=== PATIENT | female | born 1940 | race Caucasian/White ===

== ENCOUNTER 2022-02-26 10:12 | Inpatient (IN) ==
[2022-02-26] MEDS ORDERED: IOPAMIDOL 100 ML BOTTLE IV ONE (10:13)
--- NOTE | 2022-02-26 10:27 | Emergency Department Note ---
HPI General Chief complaint: Abdominal Pain Stated complaint: Diverticulitus Time Seen by Provider: 02/26/22 10:26 Source: patient Mode of arrival: ambulatory Limitations: no limitations History of Present Illness HPI Narrative: Narrative: Patient is an 81-year-old female with a complex medical history presents to the emergency department due to abdominal pain, nausea, and vomiting. Patient states that she has had a few days of abdominal pain. She states that she was diagnosed with diverticulitis by her primary care physician. She states that she was given antibiotics. She has been taking her Bactrim and Flagyl since they were prescribed approximately 2-1/2 days ago. She states that she then began to have worsening abdominal pain that is now in the upper part of the abdomen. She also states that she is having nausea and vomiting which she is unable to control with the medication given to her for nausea. She endorses chills. She also states that she has had some difficulty with urination. She denies any other concerns at this time. Related Data Previous Rx's Medication Instructions Recorded Asmanex HFA 100 mcg/actuation 2 puff inhalation BID #13 grams 05/26/21 aerosol inhaler (mometasone) amlodipine 10 mg tablet 10 mg PO QDAY blood pressure #90 11/16/21 tabs amitriptyline 25 mg tablet 25 mg PO QDAY #90 tabs 01/08/22 trazodone 50 mg tablet 50 mg PO .COMPLEX PRN insomnia #90 02/02/22 tabs albuterol sulfate 2.5 mg/3 mL 2.5 mg (3 mL) inhalation Q4H PRN 02/03/22 (0.083 %) solution for nebulization Wheezing #180 mL albuterol sulfate 90 mcg/actuation 2 puff inhalation Q6H PRN 02/04/22 aerosol inhaler shortness of breath or wheezing #8.5 grams metoprolol succinate 25 mg See Rx Instructions .Route 02/10/22 tablet,extended release 24 hr .COMPLEX #90 tabs Allergies Allergy/AdvReac Type Severity Reaction Status Date / Time glucosamine Allergy Mild Hives Verified 02/27/22 07:42 shellfish derived Allergy Mild Hives Verified 02/27/22 07:42 hydrocodone AdvReac Mild Nausea, Verified 02/27/22 07:42 vomiting oxycodone [Oxycodone] AdvReac Mild vomiting Verified 02/27/22 07:42 promethazine [From Phenergan] AdvReac Mild Cramping Verified 02/27/22 07:42 of the Muscles hazelnut AdvReac Mild Nausea, Uncoded 02/27/22 07:42 vomiting sulfates AdvReac Mild Headache Uncoded 02/27/22 07:42 Review of Systems ROS ROS Narrative: Narrative: Constitutional: Reports chills; Denies fever or weakness Eyes: Denies eye pain or vision change ENT ED: Denies throat pain, hearing loss or rhinorrhea Cardiovascular: Denies chest pain, dyspnea on exertion, orthopnea or edema Respiratory: Denies shortness of breath or cough Gastrointestinal: Reports abdominal pain, nausea, vomiting and diarrhea; Denies constipation, hematochezia or melena Musculoskeletal: Denies back pain or myalgia Integumentary: Denies rash or lesions Neurological: Denies headache, weakness, numbness, confusion, abnormal gait or dizziness Psychiatric: Denies anxiety, suicidal thoughts or homicidal thoughts Endocrine: Denies fatigue or polyuria PFSH Narrative Patient History Narrative: Narrative: Medical/Surgical/Family History All Active Problems (Updated 02/26/22 @ 13:37 by Guillermo Tomlinson MD) Paroxysmal atrial fibrillation (Acute) Acute pancreatitis without infection or necrosis (Acute) Sigmoid diverticulitis (Acute) Diverticulitis (Acute) Abdominal pain (Acute) OAB (overactive bladder) (Acute) Low back pain (Acute) Spinal stenosis, lumbar region with neurogenic claudication (Acute) URI (upper respiratory infection) (Acute) Lumbar stenosis with neurogenic claudication (Acute) Difficulty in walking (Chronic) Claustrophobia (Chronic) Other low back pain (Chronic) Peripheral neuropathy (Chronic) Asthma with exacerbation (Chronic) Arthritis of foot (Chronic) Dark stools (Chronic) Abdominal cramping (Chronic) Left knee pain (Chronic) Back pain (Chronic) GERD with apnea (Chronic) Nocturnal hypoxemia (Chronic) Murmur, cardiac (Chronic) COPD with emphysema (Chronic) Fecal incontinence (Chronic) Medicare annual wellness visit, initial (Chronic) Celiac artery stenosis (Chronic) Ascending aortic aneurysm (Chronic) Muscle spasm (Chronic) Leg cramps (Chronic) Chronic cough (Chronic) Edema (Chronic) Angioedema (Chronic) Shortness of breath (Chronic) Diabetes mellitus (Chronic) Chronic kidney disease, stage 3 (Chronic) Seborrheic keratosis (Chronic) History of tobacco use (Chronic) Migraines (Chronic) Joint pain (Chronic) Insomnia (Chronic) Hyperlipidemia (Chronic) Hypertension, essential (Chronic) Asthma (Chronic) Medical History (Updated 02/26/22 @ 13:37 by Guillermo Tomlinson MD) Abdominal cramping Abdominal pain Angioedema Arthritis Arthritis of foot Ascending aortic aneurysm Asthma Asthma with exacerbation Back pain Bronchitis Celiac artery stenosis 80% 0n CT 02/2020 Chronic cough Chronic kidney disease, stage 3 Chronic pain Claustrophobia COPD with emphysema Cough Dark stools Daytime sleepiness Diabetes mellitus Dx about 2011 Difficulty in walking Edema Encounter for Health Maintenance Examination in Adult Fatigue Fecal incontinence GERD with apnea History of tobacco use Hyperlipidemia Hypertension, essential Dx about 2005 Insomnia Joint pain Left knee pain Leg cramps Localized swelling, mass and lump, neck Loose stools Low back pain Low back pain Lumbar stenosis with neurogenic claudication Lump in neck (01/24/16) [place] 03/2016 no pathology noted Medicare annual wellness visit, initial Migraines Murmur, cardiac Muscle spasm Nocturnal hypoxemia OAB (overactive bladder) Other low back pain Peripheral neuropathy Postmenopausal Seborrheic keratosis Shortness of breath SI (sacroiliac) joint inflammation Stomach pain URI (upper respiratory infection) Urinary hesitancy Surgical History H/O colonoscopy (11/13/14) Spring 2014 [address] [place], repeat 2019 H/O foot surgery 1979; bilateral H/O tubal ligation 1970 H/O: hysterectomy 1977 History of appendectomy History of tonsillectomy Family History Father Arthritis Diabetes Heart disease Mother Arthritis Diabetes Hypertension, essential Stroke Thyroid disease Brother Diabetes Hypertension, essential Daughter Migraines Seizures Social History Smoking Status: Former smoker Alcohol Intake Frequency: does not drink Substance Use: does not use Exam Narrative Narrative: Narrative: General Limitations: no limitations General appearance: Present alert and in no apparent distress; Absent anxious or appears intoxicated Head Head: Present atraumatic and normocephalic Eye Eye: Present PERRL and EOMI; Absent scleral icterus or nystagmus ENT ENT: Present mucous membranes moist; Absent nasal congestion Neck Neck: Present full ROM; Absent tenderness Chest Chest: Present normal inspection and symmetric chest wall rise; Absent tenderness Respiratory Respiratory: Present normal lung sounds bilaterally; Absent respiratory distress or accessory muscle use Cardiovascular Cardiovascular: Present regular rate, normal rhythm and normal heart sounds Adbominal Abdominal: Present soft, tenderness (LLQ) and normal bowel sounds; Absent distention Extremities Extremities: Present normal inspection and full ROM; Absent tenderness Back Back: Present normal inspection and full ROM; Absent tenderness Neurological Neurological: Present alert and oriented X3 Psychiatric Psychiatric: Present normal affect and normal mood Skin Skin: Present warm (WNL), dry and normal color Course Vital Signs Vital signs: Vital Signs Temperature 98.1 F 02/26/22 10:15 Pulse Rate 115 H 02/26/22 10:15 Respiratory Rate 18 02/26/22 10:15 Blood Pressure 148/98 02/26/22 10:15 Pulse Oximetry (%) 96 02/26/22 10:15 Oxygen Delivery Method 02/26/22 10:15 Temperature 98.5 F 02/27/22 07:19 Pulse Rate 84 02/27/22 07:19 Respiratory Rate 18 02/27/22 07:58 Blood Pressure 131/73 02/27/22 07:19 Pulse Oximetry (%) 90 02/27/22 07:58 Oxygen Delivery Method 02/27/22 07:58 Oxygen Flow Rate (L/min) 3 02/27/22 06:10 [facility] Narrative Medical decision making narrative: Narrative: Patient is an 81-year-old female with a complex medical history presents to the emergency department due to abdominal pain, nausea, and vomiting. Differential includes diverticulitis worsening with perforation or abscess, colitis, UTI, and side effect of antibiotics. Patient's CT does demonstrate diverticulitis. Labs demonstrate elevated lipase. Due to her symptoms with pancreatitis I have spoken to Dr. Tomlinson and he has agreed to see and evaluate patient for admission. Lab Data Result diagrams: 02/27/22 05:37 02/27/22 05:37 Labs: Lab Results 02/26/22 02/26/22 02/26/22 Range/Units 10:40 10:40 10:45 WBC 10.5 (4.5-11.0) K/mcL RBC 4.47 (3.59-5.38) M/mcL Hgb 13.3 (11.2-15.7) g/dL Hct 38.4 (34.1-44.9) % POC Hct (36-48) MCV 85.9 (80.0-100.0) fL MCH 29.8 (26.0-34.0) pg MCHC 34.6 (31.0-36.0) g/dL RDW 13.2 (11.5-14.5) % Plt Count 249 (140-440) K/mcL MPV 10.6 H (7.4-10.4) fL Immature Gran % (Auto) 0.3 (0.0-0.5) % Neut % (Auto) 83.2 H (38.0-78.0) % Lymph % (Auto) 7.9 L (15.5-49.0) % Moffat % (Auto) 8.2 (1.0-12.0) % Eos % (Auto) 0.1 (0.0-7.0) % Baso % (Auto) 0.3 (0.0-2.0) % Lymph # (Auto) 0.83 L (1.50-4.80) K/mcL Moffat # (Auto) 0.86 (0.10-0.90) K/mcL Eos # (Auto) 0.01 (0.00-0.70) K/mcL Baso # (Auto) 0.03 (0.00-0.30) K/mcL Immature Gran # 0.03 (0.00-0.05) K/mcl Absolute Neutrophils 8.78 H (1.80-8.00) K/mcL VBG Lactic Acid (0.5-2.0) mmol/L POC Sodium (133-145) POC Potassium (3.3-5.1) POC Chloride (96-108) POC Total CO2 (22-30) POC BUN (6-20) POC Creatinine (0.6-1.2) POC Glucose (70-105) POC WB Ioniz Calcium (1.16-1.32) Total Bilirubin 0.5 (0.1-1.0) mg/dL Direct Bilirubin < 0.2 (0-0.3) mg/dL AST 23 (<32) U/L ALT 12 (<40) U/L Alkaline Phosphatase 86 (39-117) U/L Total Protein 8.0 (5.9-8.4) gm/dL Albumin 4.2 (3.2-5.2) gm/dL Globulin 3.8 H (2.2-3.7) gm/dL Lipase 869 H (7-60) U/L Urine Color Yellow Urine Appearance Slightly cloudy A (Clear) Urine pH 5.5 (5.0-9.0) Ur Specific [place] >= 1.030 (1.000-1.035) Urine Protein 30 mg/dl A (Negative) mg/dL Urine Glucose (UA) Negative (Negative) mg/dL Urine Ketones 40 mg/dl A (Negative) mg/dL Urine Occult Blood Negative (Negative) louise/mcL Urine Nitrate Negative (Negative) Urine Bilirubin Negative (Negative) mg/dL Urine Urobilinogen Normal mg/dL Ur Leukocyte Esterase Trace A (Negative) /uL Urine RBC 1 (0-3) /hpf Urine WBC 2 (0-4) /hpf Ur Squamous Epith Cells 7 H (0-4) /hpf Urine Bacteria Few A (0) /hpf Hyaline Casts 3 H (0-2) /lph Urine Mucus Mod A (None) /hpf Ur Culture Indicated? No 02/26/22 02/26/22 Range/Units 10:50 13:31 WBC (4.5-11.0) K/mcL RBC (3.59-5.38) M/mcL Hgb (11.2-15.7) g/dL Hct (34.1-44.9) % POC Hct 43.0 (36-48) MCV (80.0-100.0) fL MCH (26.0-34.0) pg MCHC (31.0-36.0) g/dL RDW (11.5-14.5) % Plt Count (140-440) K/mcL MPV (7.4-10.4) fL Immature Gran % (Auto) (0.0-0.5) % Neut % (Auto) (38.0-78.0) % Lymph % (Auto) (15.5-49.0) % Moffat % (Auto) (1.0-12.0) % Eos % (Auto) (0.0-7.0) % Baso % (Auto) (0.0-2.0) % Lymph # (Auto) (1.50-4.80) K/mcL Moffat # (Auto) (0.10-0.90) K/mcL Eos # (Auto) (0.00-0.70) K/mcL Baso # (Auto) (0.00-0.30) K/mcL Immature Gran # (0.00-0.05) K/mcl Absolute Neutrophils (1.80-8.00) K/mcL VBG Lactic Acid 0.9 (0.5-2.0) mmol/L POC Sodium 131 L (133-145) POC Potassium 4.0 (3.3-5.1) POC Chloride 96 (96-108) POC Total CO2 26.0 (22-30) POC BUN 21 H (6-20) POC Creatinine 1.0 (0.6-1.2) POC Glucose 158 H (70-105) POC WB Ioniz Calcium 1.15 L (1.16-1.32) Total Bilirubin (0.1-1.0) mg/dL Direct Bilirubin (0-0.3) mg/dL AST (<32) U/L ALT (<40) U/L Alkaline Phosphatase (39-117) U/L Total Protein (5.9-8.4) gm/dL Albumin (3.2-5.2) gm/dL Globulin (2.2-3.7) gm/dL Lipase (7-60) U/L Urine Color Urine Appearance (Clear) Urine pH (5.0-9.0) Ur Specific [place] (1.000-1.035) Urine Protein (Negative) mg/dL Urine Glucose (UA) (Negative) mg/dL Urine Ketones (Negative) mg/dL Urine Occult Blood (Negative) louise/mcL Urine Nitrate (Negative) Urine Bilirubin (Negative) mg/dL Urine Urobilinogen mg/dL Ur Leukocyte Esterase (Negative) /uL Urine RBC (0-3) /hpf Urine WBC (0-4) /hpf Ur Squamous Epith Cells (0-4) /hpf Urine Bacteria (0) /hpf Hyaline Casts (0-2) /lph Urine Mucus (None) /hpf Ur Culture Indicated? Discharge Plan Patient/Caregiver Discharge Instructions Pt seen by [facility]TER/PA only: No Clinical Impression: Diverticulitis Patient Disposition: Xfer As Inpt ([facility]) Condition: Fair Discharge Date/Time: 02/26/22 13:46 Discharge Location: [facility]
[2022-02-26 10:52] LABS: POC Calcium, Ionized 1.15 (1.16-1.32)
[2022-02-26] MEDS ORDERED: 0.9 % SODIUM CHLORIDE 500 ML IV ONE (10:58)
[2022-02-26 11:21] LABS: Basophils # (Auto) 0.03 K/mcL (0.00-0.30); Basophils % (Auto) 0.3 % (0.0-2.0); Eosinophils # (Auto) 0.01 K/mcL (0.00-0.70); Eosinophils % (Auto) 0.1 % (0.0-7.0); Hematocrit 38.4 % (34.1-44.9); Hemoglobin 13.3 g/dL (11.2-15.7); Lymphocytes # (Auto) 0.83 K/mcL (1.50-4.80); Lymphocytes % (Auto) 7.9 % (15.5-49.0); Mean Cell Volume 85.9 fL (80.0-100.0); Mean Corpuscular HGB Conc 34.6 g/dL (31.0-36.0); Mean Platelet Volume 10.6 fL (7.4-10.4); Monocytes # (Auto) 0.86 K/mcL (0.10-0.90); Monocytes % (Auto) 8.2 % (1.0-12.0); Neutrophils % (Auto) 83.2 % (38.0-78.0); Platelet Count 249 K/mcL (140-440); RBC 4.47 M/mcL (3.59-5.38); Red Cell Distribution Width 13.2 % (11.5-14.5); WBC 10.5 K/mcL (4.5-11.0)
[2022-02-26 11:37] LABS: Appearance,Urine Slightly Cloudy (Clear); Bacteria,Urine FEW /hpf (0); Bilirubin,Urine Negative (Negative); Color,Urine Yellow; Culture Indicated,Urine No; Glucose,Urine (UA) Negative (Negative); Ketones,Urine 40 mg/dL mg/dL (Negative); Leukocyte Esterase,Urine Trace /uL (Negative); Mucus,Urine MOD /hpf; Nitrate,Urine Negative (Negative); PH,Urine 5.5 (5.0-9.0); Specific Gravity,Urine >= 1.030 (1.000-1.035); Urine Blood Negative ery/mcL (Negative); Urine Hyaline Cast 3 /lph (0-2); Urine RBC 1 /hpf (0-3); Urine Squamous Epithelial Cell 7 /hpf (0-4); Urine WBC 2 /hpf (0-4); Urobilinogen,Urine Normal
[2022-02-26 11:45] LABS: ALT/SGPT 12 U/L (<40); AST/SGOT 23 U/L (<32); Albumin 4.2 gm/dL (3.2-5.2); Alkaline Phosphatase 86 U/L (39-117); Bilirubin,Direct < 0.2 mg/dL (0-0.3); Bilirubin,Total 0.5 mg/dL (0.1-1.0); Globulin 3.8 gm/dL (2.2-3.7)
--- NOTE | 2022-02-26 11:51 | Cat Scan Report ---
History: Left lower quadrant pain, tenderness, diverticulitis TECHNIQUE: Following injection of intravenous nonionic contrast the patient was scanned during the portal venous phase from above the diaphragm to the symphysis pubis. Sagittal and coronal reformats were created. The radiation exposure was limited using dose reduction technology. FINDINGS: There is mild parenchymal scarring adjacent to the pleural surface medially in the right lower lobe and medially in the right middle lobe and inferior segment lingula. This is a chronic stable finding. The liver is normal in size and homogeneous. There are multiple cysts and small hemangiomas in the spleen. Some of them have calcifications along the hand. The largest is located superiorly measures 2.6 x 2.7 cm. These are unchanged from prior CTs dating back through 2018. There are also stable adenomas in both adrenals. The larger is on the right side and measures 1.9 cm. The gallbladder is normal with no stones or thickening of the wall. The bile ducts are nondilated. There is no mass or inflammation the pancreas. The kidneys are normal in size shape and contour and there is no kidney stone or hydronephrosis. A well-circumscribed thin-walled cyst is present in the left adnexa. It measures 6.1 x 6.6 cm. This is unchanged from 03/27/20 and may be a simple cyst or a serous cystadenoma. There is no evidence of malignant degeneration. The uterus is absent. Right ovary is not seen. Patient has developed acute sigmoid diverticulitis deep in the pelvis. There is inflammation in the surrounding fat. No abscess has formed. There is no free air or free fluid. No bowel obstruction is present. Small intestine is normal. IMPRESSION: Acute diverticulitis in the sigmoid colon Stable large cyst arising from left ovary Stable cysts in the spleen Stable adrenal adenomas Dr. Webb was called with report Interpreted and Authenticated by: Jorge Rosa 02/26/22
[2022-02-26] MEDS ORDERED: METHOCARBAMOL 750 MG TABLET PO PRN (13:21)
[2022-02-26] MEDS ORDERED: ALBUTEROL SULFATE 2.5 MG/3 ML NEBULIZER INH PRN (13:21)
--- NOTE | 2022-02-26 13:43 | Internal Med History&Physical ---
HPI History of Present Illness Patient information: Note initiated : 02/26/22 at 1:29 pm Service Date, if different from initiated Date: [] Patient: Barbara Olsen a 81 y/o F admitted on for Diverticulitus. Chief Complaint: [nausea, abdominal pain] Chief complaint: nausea, abdominal pain History of present illness: Ms. Olsen is a 81 year old F history of essential hypertensions, mixed dyslipidemia, asthma, paroxysmal atrial fibrillation, presenting with 1 week history of abdominal pain and nausea. He does not have any prior history of diverticulitis or dermatitis. She was recently being diagnosed with sigmoid div erticulitis, and was being started on oral antibiotics with Bactrim and metronidazole. She first started taking those antibiotics on February 24, 2022. However, her symptoms of abdominal pain got worse after taking those medications. She does not take dose today. She is complaining of upset stomach with nausea without vomiting. She is complain of dry heaves. She is complaining of mild abdominal pain in all quadrants which she associated with nausea cannot otherwise qualified the nature of the pain. It is constant. She denies any fever or chills. Vital signs at ED presentations significant for mild tachycardia with heart rate in the low 100s, rest of the vital signs within normal limits. Labs significant for lack of leukocytosis with WBC 10.5. Lactic acid pending. Lipase 869. LFTs within normal limits. CT of the abdomen pelvis showing acute diverticulitis in the sigmoid colon. Stable large cyst arising from left ovary. Stable cyst in the spleen. Stable abdominal adenomas. Constitutional Constitutional: Absent chills, excessive sweating, fatigue, fever(s) or weakness EENT Eyes: Absent blurry vision, change in vision, loss of vision or other visual disturbances Ears: Absent decreased hearing or tinnitus Nose, mouth and throat: Absent abnormal hearing, dry mouth, headache(s), nasal congestion or sore throat Cardiovascular Cardiovascular: Absent chest pain, chest pain at rest, edema, irregular heart rhythm or palpatations Respiratory Respiratory: Absent cough, dyspnea or wheezing Gastrointestinal Gastrointestinal: Present abdominal pain, nausea and vomiting; Absent constipation or diarrhea Musculoskeletal Musculoskeletal: Absent back pain, deformity, limited range of motion, muscle cramps, muscle weakness or numbness Integumentary Integumentary: Absent lesions, rash or wounds Neurological Neurological: Absent focal weakness, headache(s) or numbness Psychiatric Psychiatric: Absent anxiety, depression or hallucinations PFSH PFSH All Active Problems (Updated 02/26/22 @ 13:37 by Guillermo Tomlinson MD) Paroxysmal atrial fibrillation (Acute) Acute pancreatitis without infection or necrosis (Acute) Sigmoid diverticulitis (Acute) Diverticulitis (Acute) Abdominal pain (Acute) OAB (overactive bladder) (Acute) Low back pain (Acute) Spinal stenosis, lumbar region with neurogenic claudication (Acute) URI (upper respiratory infection) (Acute) Lumbar stenosis with neurogenic claudication (Acute) Difficulty in walking (Chronic) Claustrophobia (Chronic) Other low back pain (Chronic) Peripheral neuropathy (Chronic) Asthma with exacerbation (Chronic) Arthritis of foot (Chronic) Dark stools (Chronic) Abdominal cramping (Chronic) Left knee pain (Chronic) Back pain (Chronic) GERD with apnea (Chronic) Nocturnal hypoxemia (Chronic) Murmur, cardiac (Chronic) COPD with emphysema (Chronic) Fecal incontinence (Chronic) Medicare annual wellness visit, initial (Chronic) Celiac artery stenosis (Chronic) Ascending aortic aneurysm (Chronic) Muscle spasm (Chronic) Leg cramps (Chronic) Chronic cough (Chronic) Edema (Chronic) Angioedema (Chronic) Shortness of breath (Chronic) Diabetes mellitus (Chronic) Chronic kidney disease, stage 3 (Chronic) Seborrheic keratosis (Chronic) History of tobacco use (Chronic) Migraines (Chronic) Joint pain (Chronic) Insomnia (Chronic) Hyperlipidemia (Chronic) Hypertension, essential (Chronic) Asthma (Chronic) Medical History (Updated 02/26/22 @ 13:37 by Guillermo Tomlinson MD) Abdominal cramping Abdominal pain Angioedema Arthritis Arthritis of foot Ascending aortic aneurysm Asthma Asthma with exacerbation Back pain Bronchitis Celiac artery stenosis 80% 0n CT 02/2020 Chronic cough Chronic kidney disease, stage 3 Chronic pain Claustrophobia COPD with emphysema Cough Dark stools Daytime sleepiness Diabetes mellitus Dx about 2011 Difficulty in walking Edema Encounter for Health Maintenance Examination in Adult Fatigue Fecal incontinence GERD with apnea History of tobacco use Hyperlipidemia Hypertension, essential Dx about 2005 Insomnia Joint pain Left knee pain Leg cramps Localized swelling, mass and lump, neck Loose stools Low back pain Low back pain Lumbar stenosis with neurogenic claudication Lump in neck (01/24/16) [place] 03/2016 no pathology noted Medicare annual wellness visit, initial Migraines Murmur, cardiac Muscle spasm Nocturnal hypoxemia OAB (overactive bladder) Other low back pain Peripheral neuropathy Postmenopausal Seborrheic keratosis Shortness of breath SI (sacroiliac) joint inflammation Stomach pain URI (upper respiratory infection) Urinary hesitancy Surgical History H/O colonoscopy (11/13/14) Spring 2014 [place] [place], repeat 2019 H/O foot surgery 1978; bilateral H/O tubal ligation 1970 H/O: hysterectomy 1977 History of appendectomy History of tonsillectomy Family History Father Arthritis Diabetes Heart disease Mother Arthritis Diabetes Hypertension, essential Stroke Thyroid disease Brother Diabetes Hypertension, essential Daughter Migraines Seizures Social History marital status: education level: college other: Children-3 smoking status: Former smoker quit date: 06/27/79 pack-years: 19 alcohol intake frequency: does not drink substance use type: does not use MEDS/ALLERGIES Home Medications and Allergies Home Medications Medication Instructions Recorded Confirmed Type cyanocobalamin (vitamin B-12) 1,000 mcg PO QDAY 03/09/16 02/24/22 History 1,000 mcg tablet (Vitamin B-12) cholecalciferol (vitamin D3) 25 5,000 unit PO QDAY 03/10/20 02/24/22 History mcg (1,000 unit) tablet Asmanex HFA 100 mcg/actuation 2 puff inhalation BID #13 grams 05/26/21 02/24/22 Rx aerosol inhaler (mometasone) amlodipine 10 mg tablet 10 mg PO QDAY blood pressure #90 11/16/21 02/24/22 Rx tabs methocarbamol 750 mg tablet 750 mg PO Q8H PRN muscle spasm #30 01/04/22 02/24/22 Rx tabs oxybutynin chloride 5 mg tablet 5 mg PO QDAY #30 tabs 01/04/22 02/24/22 Rx amitriptyline 25 mg tablet 25 mg PO QDAY #90 tabs 01/08/22 02/24/22 Rx trazodone 50 mg tablet 50 mg PO .COMPLEX PRN insomnia #90 02/02/22 02/24/22 Rx tabs albuterol sulfate 2.5 mg/3 mL 2.5 mg (3 mL) inhalation Q4H PRN 02/03/22 02/24/22 Rx (0.083 %) solution for nebulization Wheezing #180 mL albuterol sulfate 90 mcg/actuation 2 puff inhalation Q6H PRN 02/04/22 02/24/22 Rx aerosol inhaler shortness of breath or wheezing #8.5 grams metoprolol succinate 25 mg See Rx Instructions .Route 02/10/22 02/24/22 Rx tablet,extended release 24 hr .COMPLEX #90 tabs atorvastatin 10 mg tablet 10 mg PO QDAY cholesterol #90 tabs 02/15/22 02/24/22 Rx amoxicillin 875 mg-potassium 1 tab PO BID #20 tabs 02/26/22 Rx clavulanate 125 mg tablet Allergies Allergy/AdvReac Type Severity Reaction Status Date / Time hydrocodone Allergy Nausea, Verified 02/24/22 08:41 vomiting shellfish derived Allergy Hives Verified 02/24/22 08:41 oxycodone [Oxycodone] AdvReac Severe vomiting Verified 02/24/22 08:41 glucosamine AdvReac Intermediate Hives Verified 02/24/22 08:41 hazelnut Allergy Severe Nausea, Uncoded 02/24/22 08:41 vomiting dust Allergy Unknown Asthma Uncoded 02/24/22 08:41 dust mites Allergy Unknown Unknown Uncoded 02/24/22 08:41 sulfates AdvReac Intermediate Headache Uncoded 02/24/22 08:41 EXAM Constitutional Vitals: Temp Pulse Resp BP Pulse Ox O2 Del Method 36.7 C 103 H 18 142/88 93 02/26/22 10:15 02/26/22 13:14 02/26/22 11:34 02/26/22 12:52 02/26/22 13:14 02/26/22 11:34 General appearance: cooperative and no acute distress Head Head exam: Present atraumatic and normocephalic Eye Eye exam: Present EOMI and PERRL ENT ENT exam: Present mucous membranes moist, normal exam and normal external ear exam Neck Neck exam: Present normal inspection; Absent lymphadenopathy, tenderness or thyromegaly Respiratory Respiratory exam: Absent accessory muscle use, respiratory distress or wheezes Cardiovascular Cardiovascular exam: Present normal rate and rhythm; Absent JVD GI/Abdominal GI/Abdominal exam: Present normal bowel sounds, soft and tenderness; Absent organomegaly Extremities Exam Extremities exam: Present full ROM, normal capillary refill and normal inspection; Absent tenderness Neurological Exam Neurological exam: Present alert, CN II-XII intact and oriented X3; Absent motor sensory deficit Psychiatric Psychiatric exam: Present normal affect and normal mood; Absent anxious or depressed Skin Skin exam: Present dry and intact DATA Data Completed and Pending Labs: Labs from last 24 hours 02/26/22 02/26/22 02/26/22 10:50 10:45 10:40 WBC RBC Hgb Hct POC Hct 43.0 MCV MCH MCHC RDW Plt Count MPV Immature Gran % (Auto) Neut % (Auto) Lymph % (Auto) [place] % (Auto) Eos % (Auto) Baso % (Auto) Lymph # (Auto) [place] # (Auto) Eos # (Auto) Baso # (Auto) Immature Gran # Absolute Neutrophils POC Sodium 131 L POC Potassium 4.0 POC Chloride 96 POC Total CO2 26.0 POC BUN 21 H POC Creatinine 1.0 POC Glucose 158 H POC WB Ioniz Calcium 1.15 L Total Bilirubin 0.5 Direct Bilirubin < 0.2 AST 23 ALT 12 Alkaline Phosphatase 86 Total Protein 8.0 Albumin 4.2 Globulin 3.8 H Lipase 869 H Urine Color Yellow Urine Appearance Slightly cloudy A Urine pH 5.5 Ur Specific [place] >= 1.030 Urine Protein 30 mg/dl A Urine Glucose (UA) Negative Urine Ketones 40 mg/dl A Urine Occult Blood Negative Urine Nitrate Negative Urine Bilirubin Negative Urine Urobilinogen Normal Ur Leukocyte Esterase Trace A Urine RBC 1 Urine WBC 2 Ur Squamous Epith Cells 7 H Urine Bacteria Few A Hyaline Casts 3 H Urine Mucus Mod A Ur Culture Indicated? No 02/26/22 10:40 WBC 10.5 RBC 4.47 Hgb 13.3 Hct 38.4 POC Hct MCV 85.9 MCH 29.8 MCHC 34.6 RDW 13.2 Plt Count 249 MPV 10.6 H Immature Gran % (Auto) 0.3 Neut % (Auto) 83.2 H Lymph % (Auto) 7.9 L [place] % (Auto) 8.2 Eos % (Auto) 0.1 Baso % (Auto) 0.3 Lymph # (Auto) 0.83 L [place] # (Auto) 0.86 Eos # (Auto) 0.01 Baso # (Auto) 0.03 Immature Gran # 0.03 Absolute Neutrophils 8.78 H POC Sodium POC Potassium POC Chloride POC Total CO2 POC BUN POC Creatinine POC Glucose POC WB Ioniz Calcium Total Bilirubin Direct Bilirubin AST ALT Alkaline Phosphatase Total Protein Albumin Globulin Lipase Urine Color Urine Appearance Urine pH Ur Specific [place] Urine Protein Urine Glucose (UA) Urine Ketones Urine Occult Blood Urine Nitrate Urine Bilirubin Urine Urobilinogen Ur Leukocyte Esterase Urine RBC Urine WBC Ur Squamous Epith Cells Urine Bacteria Hyaline Casts Urine Mucus Ur Culture Indicated? A/P Assessment and plan (1) Asthma with exacerbation: Status: Chronic (2) Sigmoid diverticulitis: Status: Acute (3) Acute pancreatitis without infection or necrosis: Status: Acute (4) Hypertension, essential: Status: Chronic Comment: Dx about 2005 (5) Hyperlipidemia: Status: Chronic Qualifiers: Hyperlipidemia type: mixed hyperlipidemia Qualified Code(s): E78.2 - Mixed hyperlipidemia (6) Paroxysmal atrial fibrillation: Status: Acute Narrative A/P Narrative: Assessment and Plans: 1. Acute idiopathic pancreatitis: DDx: medication-induced pancreatitis, since patient stated that her abdominal pain and nausea are worse after taking Bactrim and metronidazole 2 days ago. Inpatient med surg Clear liquid diet NS@200cc/hr Zofran IV Tramadol Morphine IV 2. Sigmoid diverticulitis: d/c Bactrim DS and Flagyl, switch to Zosyn IV Zofran IV Tramadol Morphine IV Blood cultures Serial lactic acid cbc w/ auto diff in the morning to trend WBC 3. Essential HTN: Amlodipine Metoprolol Succinate 3. Paroxysmal atrial fibrillation: Metoprolol Succinate Patient not on anticoagulation therapy, decision is deferred to PCP 4. Hyperlipidemia: Continue statin therapy 5. Intermittent asthma: Continue bronchodilators as needed from home regimen GI ppx: not currently indicated DVT ppx: Lovenox Code status: Full Prognosis: guarded Disposition: inpatient med surg Time Spent With Patient Time: Total time spent is greater than 50% in coordination of care (as documented) at patient's floor/unit and/or counseling patient: Total time spent with greater than 50% in coordination of care (as documented) at patient's floor/unit and/or counseling patient:: 50 - 70 minutes
[2022-02-26] MEDS ORDERED: IPRATROPIUM/ALBUTEROL 3 ML AMPUL.NEB NEB PRN (14:15)
[2022-02-26] MEDS ORDERED: traZODone HCL 50 MG TABLET PO PRN (14:15)
[2022-02-26] MEDS ORDERED: morphine 4 MG/ML VIAL IV PRN (14:15)
[2022-02-26] MEDS ORDERED: traMADol 50 MG TABLET PO PRN (14:15)
[2022-02-26] MEDS: PIPERACILLIN SODIUM/TAZOBACTAM 3.375 GM in DEXTROSE 5% IN WATER 50 ML IV SCH ×3 (15:37→22:59)
[2022-02-26] MEDS: 0.9 % SODIUM CHLORIDE 1,000 ML IV SCH ×2 (15:37→22:59)
[2022-02-26] MEDS: 0.9 % SODIUM CHLORIDE 10 ML SYRINGE IV SCH ×2 (15:39→20:13)
[2022-02-26] MEDS ORDERED: ALBUTEROL SULFATE 200 PUFF INHALER INH PRN (15:48)
[2022-02-26] MEDS: MOMETASONE INH SCH (20:12)
[2022-02-26] MEDS: ONDANSETRON 4 MG/2 ML VIAL IV PRN (20:12)
[2022-02-26] MEDS: SENNOSIDES 1 TABLET PO SCH (20:29)
[2022-02-26] MEDS: DOCUSATE SODIUM 100 MG CAPSULE PO SCH (20:30)
[2022-02-26] MEDS ORDERED: PROMETHAZINE 25 MG/ML VIAL IV PRN (22:39)
[2022-02-26] MEDS ORDERED: PROMETHAZINE 25 MG/ML VIAL ONE (23:01)
[2022-02-26] MEDS ORDERED: diphenhydrAMINE 50 MG/ML VIAL IV PRN (23:52)
[2022-02-26] MEDS ORDERED: METOCLOPRAMIDE 10 MG/2 ML VIAL IV PRN (23:53)
[2022-02-27] MEDS ORDERED: diphenhydrAMINE 50 MG/ML VIAL ONE
[2022-02-27] MEDS: ACETAMINOPHEN 325 MG TABLET PO PRN ×2 (03:03→22:35)
[2022-02-27] MEDS: 0.9 % SODIUM CHLORIDE 1,000 ML IV SCH ×5 (04:20→22:40)
[2022-02-27] MEDS: PIPERACILLIN SODIUM/TAZOBACTAM 3.375 GM in DEXTROSE 5% IN WATER 50 ML IV SCH ×4 (05:47→23:28)
[2022-02-27] MEDS: 0.9 % SODIUM CHLORIDE 10 ML SYRINGE IV SCH ×3 (05:49→22:39)
[2022-02-27 06:44] LABS: Basophils # (Auto) 0.03 K/mcL (0.00-0.30); Basophils % (Auto) 0.4 % (0.0-2.0); Eosinophils # (Auto) 0.09 K/mcL (0.00-0.70); Eosinophils % (Auto) 1.3 % (0.0-7.0); Hematocrit 33.6 % (34.1-44.9); Hemoglobin 11.3 g/dL (11.2-15.7); Lymphocytes # (Auto) 0.95 K/mcL (1.50-4.80); Lymphocytes % (Auto) 13.7 % (15.5-49.0); Mean Cell Volume 87.3 fL (80.0-100.0); Mean Corpuscular HGB Conc 33.6 g/dL (31.0-36.0); Monocytes # (Auto) 0.85 K/mcL (0.10-0.90); Monocytes % (Auto) 12.2 % (1.0-12.0); Platelet Count 217 K/mcL (140-440); RBC 3.85 M/mcL (3.59-5.38); Red Cell Distribution Width 13.5 % (11.5-14.5)
[2022-02-27 07:00] LABS: ALT/SGPT 10 U/L (<40); AST/SGOT 18 U/L (<32); Albumin 3.4 gm/dL (3.2-5.2); Albumin/Globulin Ratio 1.1 (1.0-2.3); Alkaline Phosphatase 61 U/L (39-117); Bilirubin,Total 0.5 mg/dL (0.1-1.0); Blood Urea Nitrogen 12 mg/dL (8-23); Calcium 8.4 mg/dL (8.6-10.4); Carbon Dioxide 22 mmol/L (22-30); Chloride 106 mmol/L (96-108); Glomerular Filtration Rate 60; Glucose 101 mg/dL (70-105); Phosphorous 2.4 mg/dL (2.5-4.5)
[2022-02-27] MEDS: MOMETASONE INH SCH ×2 (08:35→19:22)
[2022-02-27] MEDS: ATORVASTATIN 10 MG TABLET PO SCH (08:36)
[2022-02-27] MEDS: AMITRIPTYLINE 25 MG TABLET PO SCH (08:36)
[2022-02-27] MEDS: amLODIPine 10 MG TABLET PO SCH (08:36)
[2022-02-27] MEDS: CYANOCOBALAMIN (VITAMIN B-12) 500 MCG TABLET PO SCH (08:36)
[2022-02-27] MEDS: METOPROLOL SUCCINATE 25 MG TAB.XL.24H PO SCH (08:37)
[2022-02-27] MEDS: VITAMIN D3 25 MCG TABLET PO SCH (08:37)
[2022-02-27] MEDS: OXYBUTYNIN CHLORIDE 5 MG TABLET PO SCH (08:37)
[2022-02-27] MEDS: ENOXAPARIN 40 MG/0.4 ML SYRINGE SQ SCH (08:38)
[2022-02-27] MEDS: DOCUSATE SODIUM 100 MG CAPSULE PO SCH ×2 (08:40→22:39)
--- NOTE | 2022-02-27 10:45 | Internal Med Progress Note ---
SUBJECTIVE Subjective Patient information: Note initiated : 02/27/22 at 10:41 am Service Date, if different from initiated Date: [] Patient: Barbara Olsen 81 y/o F admitted on 02/26/22 for Diverticulitus. Chief Complaint: [] Interval history: Ms. Olesn is a 81 year old F history of essential hypertensions, mixed dyslipidemia, asthma, paroxysmal atrial fibrillation, presenting with 1 week history of abdominal pain and nausea. He does not have any prior history of diverticulitis or dermatitis. She was recently being diagnosed with sigmoid diverticulitis, and was being started on oral antibiotics with Bactrim and metronidazole. She first started taking those antibiotics on February 24, 2022. However, her symptoms of abdominal pain got worse after taking those medications. She does not take dose today. She is complaining of upset stomach with nausea without vomiting. She is complain of dry heaves. She is complaining of mild abdominal pain in all quadrants which she associated with nausea cannot otherwise qualified the nature of the pain. It is constant. She denies any fever or chills. Vital signs at ED presentations significant for mild tachycardia with heart rate in the low 100s, rest of the vital signs within normal limits. Labs significant for lack of leukocytosis with WBC 10.5. Lactic acid pending. Lipase 869. LFTs within normal limits. CT of the abdomen pelvis showing acute diverticulitis in the sigmoid colon. Stable large cyst arising from left ovary. Stable cyst in the spleen. Stable abdominal adenomas. 02/27: Low-grade fever T-max 37.3 overnight. Blood culture no growth to date. WBC 7.0. Patient denies any abdominal pain currently. She denies any fever or chills. She tolerated clear liquid diet well. Advance diet to full liquid diet. Continue IV fluid and IV antibiotics with Zosyn while monitoring blood culture results. Constitutional Vitals: Vital Signs Temp Pulse Resp BP Pulse Ox O2 Del Method O2 Flow Rate 36.9 C 84 18 131/73 90 3 02/27/22 07:19 02/27/22 07:19 02/27/22 07:58 02/27/22 07:19 02/27/22 07:58 02/27/22 07:58 02/27/22 06:10 Period Temp Pulse Resp BP Sys/Phillips Pulse Ox O2 Del Method O2 Flow Rate Last 24 Hr 36.8 C-37.6 C 75-112 18-22 120-176/58-90 90-99 Nasal Cannula- Room Air 3-3 Intake and Output 02/26/22 02/27/22 02/27/22 21:59 05:59 13:59 Intake Total 1100 1850 1050 Output Total 475 550 775 Balance 625 1300 275 Weight 91.989 kg Intake & Output: Intake & Output 02/26/22 02/27/22 02/27/22 21:59 05:59 13:59 Intake Total 1100 1850 1050 Output Total 475 550 775 Balance 625 1300 275 Weight 91.989 kg Intake: IV 1100 1050 1050 Sodium Chloride 0.9% 1,000 ml @ 1000 1000 1000 200 mls/hr IV .Q5H [facility] Rx#: [id number] Zosyn 3.375 gm In Dextrose 5% 100 50 50 in Water 50 ml @ 100 mls/hr IV Q6H FELIBERTO Rx#:[id number] Oral 800 Output: Urine Catheter Amount 550 775 Void Amount 475 Other: Urine Appearance Clear Cloudy Clear Uretheral ([place]) Clear Clear Urine Color Bright Yellow Dark Yellow Light Susana Uretheral ([place]) Bright Yellow Light [place] Urine Odor Strong Uretheral ([place]) Strong General appearance: cooperative, no acute distress and obese Head Head exam: Present atraumatic and normal inspection Eye Eye exam: Present normal appearance ENT ENT exam: Present mucous membranes moist, normal exam and normal external ear exam Neck Neck exam: Present normal inspection Respiratory Respiratory exam: Present normal respiratory exam Cardiovascular Cardiovascular exam: Present normal rate and rhythm GI/Abdominal GI/Abdominal exam: Present normal bowel sounds Back Exam Back exam: Present normal inspection Neurological Exam Neurological exam: Present alert and oriented X3 Skin Skin exam: Present intact and warm OBJ DATA Labs CBC & Chem 7: 02/27/22 05:37 02/27/22 05:37 Labs: Abnormal Lab Results 02/27/22 02/27/22 02/26/22 05:37 05:37 10:50 Hct 33.6 L MPV Neut % (Auto) Lymph % (Auto) 13.7 L [place] % (Auto) 12.2 H Lymph # (Auto) 0.95 L Absolute Neutrophils POC Sodium 131 L POC BUN 21 H POC Glucose 158 H Calcium 8.4 L POC WB Ioniz Calcium 1.15 L Phosphorus 2.4 L Globulin Lipase Urine Appearance Urine Protein Urine Ketones Ur Leukocyte Esterase Ur Squamous Epith Cells Urine Bacteria Hyaline Casts Urine Mucus 02/26/22 02/26/22 02/26/22 10:45 10:40 10:40 Hct MPV 10.6 H Neut % (Auto) 83.2 H Lymph % (Auto) 7.9 L [place] % (Auto) Lymph # (Auto) 0.83 L Absolute Neutrophils 8.78 H POC Sodium POC BUN POC Glucose Calcium POC WB Ioniz Calcium Phosphorus Globulin 3.8 H Lipase 869 H Urine Appearance Slightly cloudy A Urine Protein 30 mg/dl A Urine Ketones 40 mg/dl A Ur Leukocyte Esterase Trace A Ur Squamous Epith Cells 7 H Urine Bacteria Few A Hyaline Casts 3 H Urine Mucus Mod A Meds: Medications Acetaminophen (Acetaminophen 325 Mg Tablet) 650 mg PO Q6HP PRN; Protocol PRN Reason: Per Pain Protocol/Fever > 101 Last Admin: 02/27/22 03:03 Dose: 650 mg Albuterol Sulfate (Albuterol Sulfate 2.5 Mg/3 Ml Nebulizer) 2.5 mg INH Q4HP PRN PRN Reason: Wheezing Albuterol Sulfate (Albuterol Sulfate 200 Puff Inhaler) 2 puff INH Q6HP PRN PRN Reason: shortness of breath or wheezing Albuterol/Ipratropium (Ipratropium/Albuterol 3 Ml Ampul.Neb) 3 ml NEB Q4HRT PRN PRN Reason: Wheezing Amitriptyline HCl (Amitriptyline 25 Mg Tablet) 25 mg PO QDAY [facility] Last Admin: 02/27/22 08:36 Dose: 25 mg Amlodipine Besylate (Amlodipine 10 Mg Tablet) 10 mg PO QDAY [facility] Last Admin: 02/27/22 08:36 Dose: 10 mg Atorvastatin Calcium (Atorvastatin 10 Mg Tablet) 10 mg PO QDAY [facility] Last Admin: 02/27/22 08:36 Dose: 10 mg Cyanocobalamin (Cyanocobalamin (Vitamin B-12) 500 Mcg Tablet) 1,000 mcg PO DAILY [facility] Last Admin: 02/27/22 08:36 Dose: 1,000 mcg Diphenhydramine HCl (Diphenhydramine 50 Mg/Ml Vial) 50 mg IV Q4-6HP PRN PRN Reason: Allergic Symptoms Last Admin: 02/27/22 00:00 Dose: 50 mg Docusate Sodium (Docusate Sodium 100 Mg Capsule) 100 mg PO BID [facility] Last Admin: 02/27/22 08:40 Dose: Not Given Enoxaparin Sodium (Enoxaparin 40 Mg/0.4 Ml Syringe) 40 mg SQ DAILY [facility] Last Admin: 02/27/22 08:38 Dose: 40 mg Sodium Chloride (Sodium Chloride 0.9%) 1,000 mls @ 200 mls/hr IV .Q5H [facility] Last Admin: 02/27/22 09:56 Dose: 200 mls/hr Piperacillin Sod/Tazobactam (Sod 3.375 gm/ Dextrose) 50 mls @ 100 mls/hr IV Q6H [facility]; Protocol Last Infusion: 02/27/22 06:20 Dose: Infused Methocarbamol (Methocarbamol 750 Mg Tablet) 750 mg PO Q8HP PRN PRN Reason: muscle spasm Last Admin: 02/26/22 23:12 Dose: 750 mg Metoclopramide HCl (Metoclopramide 10 Mg/2 Ml Vial) 10 mg IV Q6HP PRN PRN Reason: Nausea And Vomiting Metoprolol Succinate (Metoprolol Succinate 25 Mg Tab.Xl.24h) 25 mg PO DAILY [facility] Last Admin: 02/27/22 08:37 Dose: 25 mg Morphine Sulfate (Morphine 4 Mg/Ml Vial) 4 mg IV Q4HP PRN; Protocol PRN Reason: Per Pain Protocol Ondansetron HCl (Ondansetron 4 Mg/2 Ml Vial) 4 mg IV Q6HP PRN PRN Reason: Nausea And Vomiting Last Admin: 02/26/22 20:12 Dose: 4 mg Oxybutynin Chloride (Oxybutynin Chloride 5 Mg Tablet) 5 mg PO QDAY [facility] Last Admin: 02/27/22 08:37 Dose: 5 mg Mometasone [Asmanex Hfa] 100 Mcg/Actuation Hfa Aerosol Inhaler 2 dose INH BID [facility] Last Admin: 02/27/22 08:35 Dose: 2 dose Senna (Sennosides 1 Tablet) 2 tab PO HS [facility] Last Admin: 02/26/22 20:29 Dose: 2 tab Sodium Chloride (0.9 % Sodium Chloride 10 Ml Syringe) 10 ml IV Q8 [facility] Last Admin: 02/27/22 05:49 Dose: Not Given Tramadol HCl (Tramadol 50 Mg Tablet) 50 mg PO Q6HP PRN; Protocol PRN Reason: Pain Trazodone HCl (Trazodone Hcl 50 Mg Tablet) 0 mg PO HSP PRN PRN Reason: insomnia Vitamin D (Vitamin D3 25 Mcg Tablet) 25 mcg PO DAILY [facility] Last Admin: 02/27/22 08:37 Dose: 25 mcg A/P Assessment and plan (1) Asthma with exacerbation: Status: Chronic (2) Sigmoid diverticulitis: Status: Acute (3) Acute pancreatitis without infection or necrosis: Status: Acute (4) Hypertension, essential: Status: Chronic Comment: Dx about 2005 (5) Hyperlipidemia: Status: Chronic Qualifiers: Hyperlipidemia type: mixed hyperlipidemia Qualified Code(s): E78.2 - Mixed hyperlipidemia (6) Paroxysmal atrial fibrillation: Status: Acute Narrative A/P Narrative: Assessment and Plans: 1. Acute idiopathic pancreatitis: DDx: medication-induced pancreatitis, since patient stated that her abdominal pain and nausea are worse after taking Bactrim and metronidazole 2 days ago. Inpatient med surg Full liquid diet NS@200cc/hr Zofran IV Tramadol Morphine IV 2. Sigmoid diverticulitis: d/c Bactrim DS and Flagyl, switch to Zosyn IV Zofran IV Tramadol Morphine IV Blood cultures, no growth to date Serial lactic acid cbc w/ auto diff in the morning to trend WBC 3. Essential HTN: Amlodipine Metoprolol Succinate 3. Paroxysmal atrial fibrillation: Metoprolol Succinate Patient not on anticoagulation therapy, decision is deferred to PCP 4. Hyperlipidemia: Continue statin therapy 5. Intermittent asthma: Continue bronchodilators as needed from home regimen GI ppx: not currently indicated DVT ppx: Lovenox Code status: Full Prognosis: guarded Disposition: inpatient med surg Time Spent With Patient Time: Total time spent is greater than 50% in coordination of care (as documented) at patient's floor/unit and/or counseling patient: Total time spent with greater than 50% in coordination of care (as documented) at patient's floor/unit and/or counseling patient:: 25 - 35 minutes
--- NOTE | 2022-02-27 19:00 | Internal Med Progress Note ---
SUBJECTIVE Subjective Patient information: Note initiated : 02/27/22 at 6:57 pm Service Date, if different from initiated Date: [] Patient: Barbara Olsen a 81 y/o F admitted on 02/26/22 for Diverticulitus. Chief Complaint: [] Interval history: Ms. Olsen is a 81 year old F history of essential hypertensions, mixed dyslipidemia, asthma, paroxysmal atrial fibrillation, presenting with 1 week history of abdominal pain and nausea. He does not have any prior history of diverticulitis or dermatitis. She was recently being diagnosed with sigmoid diverticulitis, and was being started on oral antibiotics with Bactrim and metronidazole. She first started taking those antibiotics on February 24, 2022. However, her symptoms of abdominal pain got worse after taking those medications. She does not take dose today. She is complaining of upset stomach with nausea without vomiting. She is complain of dry heaves. She is complaining of mild abdominal pain in all quadrants which she associated with nausea cannot otherwise qualified the nature of the pain. It is constant. She denies any fever or chills. Vital signs at ED presentations significant for mild tachycardia with heart rate in the low 100s, rest of the vital signs within normal limits. Labs significant for lack of leukocytosis with WBC 10.5. Lactic acid pending. Lipase 869. LFTs within normal limits. CT of the abdomen pelvis showing acute diverticulitis in the sigmoid colon. Stable large cyst arising from left ovary. Stable cyst in the spleen. Stable abdominal adenomas. 02/27: Low-grade fever T-max 37.3 overnight. Blood culture no growth to date. WBC 7.0. Patient denies any abdominal pain currently. She denies any fever or chills. She tolerated clear liquid diet well. Advance diet to full liquid diet. Continue IV fluid and IV antibiotics with Zosyn while monitoring blood culture results. 02/28: Patient feels much better today, wants to eat regular diet. Transition to regular diet, discontinue IV fluid. Discontinued Zosyn and started Augmentin. Plan to treat with antibiotics for 5 days. If the patient tolerates a regular diet well possible discharge this afternoon versus tomorrow morning. Head: Atraumatic, normal inspection. Eyes: normal appearance, no scleral icterus. Neck: full ROM Respiratory: no respiratory distress. Cardiovascular: normal rate and rhythm, S1, S2. GI/Abdominal: soft, nontender, no guarding. Extremities: full range of motion, nontender. Neurological: CN II-XII intact, intact motor, intact sensation. Psychiatric: normal mood. Skin: warm, normal color Constitutional Vitals: Vital Signs Temp Pulse Resp BP Pulse Ox O2 Del Method O2 Flow Rate 98.2 F 70 16 130/73 94 3 02/27/22 16:02/27/22 16:02/27/22 16:02/27/22 16:02/27/22 16:02/27/22 16:02/27/22 06:10 Period Temp Pulse Resp BP Sys/Phillips Pulse Ox O2 Del Method O2 Flow Rate Last 24 Hr 98.2 F-99.1 F 70-112 - 130-156/73-85 90-95 Nasal Cannula- Room Air 3-3 Intake and Output 02/27/22 02/27/22 02/27/22 05:59 13:59 21:59 Intake Total 1850 1100 1989 Output Total 550 1675 625 Balance 1300 -575 1365 Weight 91.989 kg Patient Weight 02/28/22 05:59 Weight 91.989 kg Intake & Output: Intake & Output 02/27/22 02/27/22 02/27/22 05:59 13:59 21:59 Intake Total 1850 1100 1989 Output Total 550 1675 625 Balance 1300 -575 1365 Weight 91.989 kg Intake: IV 1050 1100 1050 Sodium Chloride 0.9% 1,000 ml @ 1000 1000 1000 200 mls/hr IV .Q5H FELIBERTO Rx#: [id number] Zosyn 3.375 gm In Dextrose 5% 50 100 50 in Water 50 ml @ 100 mls/hr IV Q6H FELIBERTO Rx#:[id number] Oral 800 240 GI Tube Flush 700 Output: Urine Catheter Amount 550 1675 625 Other: Meal Lunch Percent of Meal Consumed 100% Feeding Ability Independent Urine Appearance Cloudy Clear Clear Uretheral ([place]) Clear Urine Color Dark Yellow Pale Pale Uretheral ([place]) Light Susana Urine Odor Strong Uretheral ([place]) Strong OBJ DATA Labs CBC & Chem 7: 02/27/22 05:37 02/27/22 05:37 Labs: Abnormal Lab Results 02/27/22 02/27/22 02/26/22 05:37 05:37 10:50 Hct 33.6 L MPV Neut % (Auto) Lymph % (Auto) 13.7 L [place] % (Auto) 12.2 H Lymph # (Auto) 0.95 L Absolute Neutrophils POC Sodium 131 L POC BUN 21 H POC Glucose 158 H Calcium 8.4 L POC WB Ioniz Calcium 1.15 L Phosphorus 2.4 L Globulin Lipase Urine Appearance Urine Protein Urine Ketones Ur Leukocyte Esterase Ur Squamous Epith Cells Urine Bacteria Hyaline Casts Urine Mucus 02/26/22 02/26/22 02/26/22 10:45 10:40 10:40 Hct MPV 10.6 H Neut % (Auto) 83.2 H Lymph % (Auto) 7.9 L [place] % (Auto) Lymph # (Auto) 0.83 L Absolute Neutrophils 8.78 H POC Sodium POC BUN POC Glucose Calcium POC WB Ioniz Calcium Phosphorus Globulin 3.8 H Lipase 869 H Urine Appearance Slightly cloudy A Urine Protein 30 mg/dl A Urine Ketones 40 mg/dl A Ur Leukocyte Esterase Trace A Ur Squamous Epith Cells 7 H Urine Bacteria Few A Hyaline Casts 3 H Urine Mucus Mod A Meds: Medications Acetaminophen (Acetaminophen 325 Mg Tablet) 650 mg PO Q6HP PRN; Protocol PRN Reason: Per Pain Protocol/Fever > 101 Last Admin: 02/27/22 03:03 Dose: 650 mg Albuterol Sulfate (Albuterol Sulfate 2.5 Mg/3 Ml Nebulizer) 2.5 mg INH Q4HP PRN PRN Reason: Wheezing Albuterol Sulfate (Albuterol Sulfate 200 Puff Inhaler) 2 puff INH Q6HP PRN PRN Reason: shortness of breath or wheezing Albuterol/Ipratropium (Ipratropium/Albuterol 3 Ml Ampul.Neb) 3 ml NEB Q4HRT PRN PRN Reason: Wheezing Amitriptyline HCl (Amitriptyline 25 Mg Tablet) 25 mg PO QDAY [facility] Last Admin: 02/27/22 08:36 Dose: 25 mg Amlodipine Besylate (Amlodipine 10 Mg Tablet) 10 mg PO QDAY [facility] Last Admin: 02/27/22 08:36 Dose: 10 mg Atorvastatin Calcium (Atorvastatin 10 Mg Tablet) 10 mg PO QDAY [facility] Last Admin: 02/27/22 08:36 Dose: 10 mg Cyanocobalamin (Cyanocobalamin (Vitamin B-12) 500 Mcg Tablet) 1,000 mcg PO DAILY [facility] Last Admin: 02/27/22 08:36 Dose: 1,000 mcg Diphenhydramine HCl (Diphenhydramine 50 Mg/Ml Vial) 50 mg IV Q4-6HP PRN PRN Reason: Allergic Symptoms Last Admin: 02/27/22 00:00 Dose: 50 mg Docusate Sodium (Docusate Sodium 100 Mg Capsule) 100 mg PO BID [facility] Last Admin: 02/27/22 08:40 Dose: Not Given Enoxaparin Sodium (Enoxaparin 40 Mg/0.4 Ml Syringe) 40 mg SQ DAILY [facility] Last Admin: 02/27/22 08:38 Dose: 40 mg Sodium Chloride (Sodium Chloride 0.9%) 1,000 mls @ 200 mls/hr IV .Q5H [facility] Last Admin: 02/27/22 15:16 Dose: 200 mls/hr Piperacillin Sod/Tazobactam (Sod 3.375 gm/ Dextrose) 50 mls @ 100 mls/hr IV Q6H [facility]; Protocol Last Infusion: 02/27/22 17:29 Dose: Infused Methocarbamol (Methocarbamol 750 Mg Tablet) 750 mg PO Q8HP PRN PRN Reason: muscle spasm Last Admin: 02/26/22 23:12 Dose: 750 mg Metoclopramide HCl (Metoclopramide 10 Mg/2 Ml Vial) 10 mg IV Q6HP PRN PRN Reason: Nausea And Vomiting Metoprolol Succinate (Metoprolol Succinate 25 Mg Tab.Xl.24h) 25 mg PO DAILY [facility] Last Admin: 02/27/22 08:37 Dose: 25 mg Morphine Sulfate (Morphine 4 Mg/Ml Vial) 4 mg IV Q4HP PRN; Protocol PRN Reason: Per Pain Protocol Ondansetron HCl (Ondansetron 4 Mg/2 Ml Vial) 4 mg IV Q6HP PRN PRN Reason: Nausea And Vomiting Last Admin: 02/26/22 20:12 Dose: 4 mg Oxybutynin Chloride (Oxybutynin Chloride 5 Mg Tablet) 5 mg PO QDAY [facility] Last Admin: 02/27/22 08:37 Dose: 5 mg Mometasone [Asmanex Hfa] 100 Mcg/Actuation Hfa Aerosol Inhaler 2 dose INH BID [facility] Last Admin: 02/27/22 08:35 Dose: 2 dose Senna (Sennosides 1 Tablet) 2 tab PO HS [facility] Last Admin: 02/26/22 20:29 Dose: 2 tab Sodium Chloride (0.9 % Sodium Chloride 10 Ml Syringe) 10 ml IV Q8 [facility] Last Admin: 02/27/22 13:38 Dose: Not Given Tramadol HCl (Tramadol 50 Mg Tablet) 50 mg PO Q6HP PRN; Protocol PRN Reason: Pain Trazodone HCl (Trazodone Hcl 50 Mg Tablet) 0 mg PO HSP PRN PRN Reason: insomnia Vitamin D (Vitamin D3 25 Mcg Tablet) 25 mcg PO DAILY [facility] Last Admin: 02/27/22 08:37 Dose: 25 mcg A/P Narrative A/P Narrative: Assessment: 81-year-old female with a history of hypertension, hyperlipidemia, atrial fibrillation, asthma, recent sigmoid diverticulitis treated with oral Bactrim and metronidazole now admitted for acute pancreatitis possibly secondary to oral antibiotics. #Acute pancreatitis possibly secondary to Bactrim or metronidazole #Acute sigmoid diverticulitis #Essential hypertension #Paroxysmal atrial fibrillation #Hyperlipidemia #Asthma Plan -Discontinue IV fluid. -Start Augmentin, discontinue Zosyn. -Continue home amlodipine, atorvastatin, Robaxin, metoprolol, oxybutynin, bronchodilators, trazodone at bedtime as needed. -Regular diet. -DVT prophylaxis: Lovenox -CODE STATUS: Limited code. -Disposition: Home when stable, antibiotic treatment will be 5 days. Time Spent With Patient Time: Total time spent is greater than 50% in coordination of care (as documented) at patient's floor/unit and/or counseling patient:
[2022-02-27] MEDS: SENNOSIDES 1 TABLET PO SCH (22:34)
[2022-02-27] MEDS: traZODone HCL 50 MG TABLET PO PRN (22:36)
[2022-02-28] MEDS: 0.9 % SODIUM CHLORIDE 1,000 ML IV SCH ×3 (01:53→12:17)
[2022-02-28] MEDS: PIPERACILLIN SODIUM/TAZOBACTAM 3.375 GM in DEXTROSE 5% IN WATER 50 ML IV SCH ×2 (05:48→11:34)
[2022-02-28] MEDS: 0.9 % SODIUM CHLORIDE 10 ML SYRINGE IV SCH ×3 (05:48→20:00)
[2022-02-28] MEDS: ENOXAPARIN 40 MG/0.4 ML SYRINGE SQ SCH (08:10)
[2022-02-28] MEDS: CYANOCOBALAMIN (VITAMIN B-12) 500 MCG TABLET PO SCH (08:10)
[2022-02-28] MEDS: AMITRIPTYLINE 25 MG TABLET PO SCH (08:10)
[2022-02-28] MEDS: OXYBUTYNIN CHLORIDE 5 MG TABLET PO SCH (08:10)
[2022-02-28] MEDS: VITAMIN D3 25 MCG TABLET PO SCH (08:11)
[2022-02-28] MEDS: METOPROLOL SUCCINATE 25 MG TAB.XL.24H PO SCH (08:11)
[2022-02-28] MEDS: amLODIPine 10 MG TABLET PO SCH (08:11)
[2022-02-28] MEDS: DOCUSATE SODIUM 100 MG CAPSULE PO SCH ×2 (08:11→20:00)
[2022-02-28] MEDS: ATORVASTATIN 10 MG TABLET PO SCH (08:11)
[2022-02-28] MEDS: MOMETASONE INH SCH ×2 (08:11→20:02)
[2022-02-28] MEDS: AMOXICILLIN/POTASSIUM CLAV 875 MG TABLET PO SCH (16:48)
[2022-02-28] MEDS: ONDANSETRON 4 MG/2 ML VIAL IV PRN (19:57)
[2022-02-28] MEDS: SENNOSIDES 1 TABLET PO SCH (20:00)
[2022-03-01] MEDS: ACETAMINOPHEN 325 MG TABLET PO PRN (00:48)
[2022-03-01] MEDS: traZODone HCL 50 MG TABLET PO PRN (00:51)
[2022-03-01] MEDS: 0.9 % SODIUM CHLORIDE 10 ML SYRINGE IV SCH (05:31)
[2022-03-01] MEDS: AMOXICILLIN/POTASSIUM CLAV 875 MG TABLET PO SCH ×2 (07:13→09:40)
[2022-03-01] MEDS: MOMETASONE INH SCH (09:32)
[2022-03-01] MEDS: amLODIPine 10 MG TABLET PO SCH (09:32)
[2022-03-01] MEDS: VITAMIN D3 25 MCG TABLET PO SCH (09:32)
[2022-03-01] MEDS: AMITRIPTYLINE 25 MG TABLET PO SCH (09:32)
[2022-03-01] MEDS: ATORVASTATIN 10 MG TABLET PO SCH (09:33)
[2022-03-01] MEDS: CYANOCOBALAMIN (VITAMIN B-12) 500 MCG TABLET PO SCH (09:33)
[2022-03-01] MEDS: METOPROLOL SUCCINATE 25 MG TAB.XL.24H PO SCH (09:33)
[2022-03-01] MEDS: DOCUSATE SODIUM 100 MG CAPSULE PO SCH (09:34)
[2022-03-01] MEDS: OXYBUTYNIN CHLORIDE 5 MG TABLET PO SCH (09:34)
[2022-03-01] MEDS: ENOXAPARIN 40 MG/0.4 ML SYRINGE SQ SCH (09:38)
--- NOTE | 2022-03-01 10:02 | Discharge Summary ---
Discharge Provider Provider IMPORTANT FOLLOW-UP INFORMATION FOR PCP: Patient information: Note initiated : 03/01/22 at 9:57 am Service Date, if different from initiated Date: [] Patient: Barbara Olsen 81 y/o F admitted on 02/26/22 for Diverticulitus. Chief Complaint: [] Date of admission: 02/26/22 13:46 Discharge date: 03/01/22 Primary care physician: Carmen Pittman DO Consults: 02/26/22 Consult to Physician [CONS] Stat Comment: Consulting Provider: Guillermo Tomlinson Reason For Exam: Physician to Consult COURSE Hospital Course Hospital course: Ms. Olsen is a 81 year old F history of essential hypertensions, mixed dyslipidemia, asthma, paroxysmal atrial fibrillation, presenting with 1 week history of abdominal pain and nausea. He does not have any prior history of diverticulitis or dermatitis. She was recently being diagnosed with sigmoid diverticulitis, and was being started on oral antibiotics with Bactrim and metronidazole. She first started taking those antibiotics on February 24, 2022. However, her symptoms of abdominal pain got worse after taking those medications. She does not take dose today. She is complaining of upset stomach with nausea without vomiting. She is complain of dry heaves. She is complaining of mild abdominal pain in all quadrants which she associated with nausea cannot otherwise qualified the nature of the pain. It is constant. She denies any fever or chills. Vital signs at ED presentations significant for mild tachycardia with heart rate in the low 100s, rest of the vital signs within normal limits. Labs significant for lack of leukocytosis with WBC 10.5. Lactic acid pending. Lipase 869. LFTs within normal limits. CT of the abdomen pelvis showing acute diverticulitis in the sigmoid colon, no evidence of ga llstones or biliary duct dilation. Stable large cyst arising from left ovary. Stable cyst in the spleen. Stable abdominal adenomas. The patient denies alcohol consumption. It is possible that the patient's recent oral antibiotics, particularly Bactrim are the cause of acute pancreatitis. 02/27: Low-grade fever T-max 37.3 overnight. Blood culture no growth to date. WBC 7.0. Patient denies any abdominal pain currently. She denies any fever or chills. She tolerated clear liquid diet well. Advance diet to full liquid diet. Continue IV fluid and IV antibiotics with Zosyn while monitoring blood culture results. 02/28: Patient feels much better today, wants to eat regular diet. Transition to regular diet, discontinue IV fluid. Discontinued Zosyn and started Augmentin. Plan to treat with antibiotics for 5 days. If the patient tolerates a regular diet well possible discharge this afternoon versus tomorrow morning. 03/01: The patient feels much better overall however did have some nausea and vomiting overnight which she attributes to Augmentin. The patient declined Augmentin at discharge. Discharged to home, follow-up with PCP. Commend ongoing discussions regarding anticoagulation for paroxysmal atrial fibrillation. The patient's [id number] score was calculated at 4 points and a 4.8% stroke risk per year. Head: Atraumatic, normal inspection. Eyes: normal appearance, no scleral icterus. Neck: full ROM Respiratory: no respiratory distress. Cardiovascular: normal rate and rhythm, S1, S2. GI/Abdominal: soft, nontender, no guarding. Extremities: full range of motion, nontender. Neurological: CN II-XII intact, intact motor, intact sensation. Psychiatric: normal mood. Skin: warm, normal color Discharge diagnosis: Acute pancreatitis Time Spent with Patient Time attestation: Total time spent providing and/or coordinating discharge services: Time spent: Less than 30 minutes EXAM Constitutional Vitals: Temp Pulse Resp BP Pulse Ox O2 Del Method O2 Flow Rate 98.4 F 62 16 135/65 96 3 03/01/22 07:22 03/01/22 07:22 03/01/22 07:22 03/01/22 07:22 03/01/22 07:22 03/01/22 07:03/01/22 03:15 Discharge Data Data Completed and Pending Labs on day of discharge: Preliminary micro results at discharge 02/26/22 14:40 Blood Culture - Preliminary Blood 02/26/22 14:32 Blood Culture - Preliminary Blood Discharge Plan Patient/Caregiver Discharge Instructions Activity: increase activity as tolerated Diet: Regular Diet Instructions: Diverticulitis (ED) Activity Restrictions/Additional Instructions: You were seen in the emergency department today due to abdominal pain, nausea, and concern about your antibiotics. Your CT scan did demonstrate divertic ulitis. We have changed your antibiotics to Augmentin. You should take this as prescribed and through completion of therapy. We have also sent a prescription for Zofran to your pharmacy. You should take this as needed for nausea/vomiting. You should follow-up with your primary care physician this next week. You should return to the emergency department for worsening symptoms, nausea/vomiting with inability to eat or drink, or for any other concerns. Prescriptions: Continued Asmanex HFA 100 mcg/actuation HFA aerosol inhaler 2 puff INHALATION BID Qty: 13 12RF Rx Instructions: Take 2 puffs twice a day rinse and clear mouth after. amlodipine 10 mg tablet 10 mg PO QDAY Qty: 90 1RF amitriptyline 25 mg tablet 25 mg PO QDAY Qty: 90 1RF trazodone 50 mg tablet 50 mg PO .COMPLEX PRN (Reason: insomnia) Qty: 90 1RF Rx Instructions: take 1-2 tabs nightly PRN; albuterol sulfate 2.5 mg /3 mL (0.083 %) solution for nebulization 2.5 mg inhalation Q4H PRN (Reason: Wheezing) Qty: 180 6RF albuterol sulfate 90 mcg/actuation HFA aerosol inhaler 2 puff inhalation Q6H PRN (Reason: shortness of breath or wheezing) Qty: 8.5 2RF metoprolol succinate 25 mg tablet extended release 24 hr See Rx Instructions .ROUTE .COMPLEX Qty: 90 1RF Dose Instruction: TAKE 1 TABLET BY MOUTH EVERY DAY Rx Instructions: TAKE 1 TABLET BY MOUTH EVERY DAY Follow Up Plan Follow up with: Carmen Pittman DO [Primary Care Provider] - Patient Disposition: Home, Self-Care Prognosis: Fair Rehab Potential: Fair Overall status at discharge: patient is progressing back to baseline Discharge Orders: Discharge Order (Routine); Ordered 03/01/22 Ordered By: Da Mora
== END 2022-03-01 13:00 | disposition home or self-care (01) | DRG 439 ==
LOC: ED 10:12 → MEDSUR 13:46
PROVIDERS: ADMIT Internal Medicine; ATTEND Internal Medicine